=== PATIENT | female | born 1980 | race African-American/Black ===

== ENCOUNTER 2019-08-08 17:19 | Emergency (ER) | payer SELFPAY ==
[~2019-08-08] VITALS: Ht 170.2 cm; Wt 90.7 kg
[2019-08-08 17:45] VITALS: BP 106/66
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
[2019-08-08] MEDS ORDERED: ROBAXIN-500MG ORAL (20:42)
[2019-08-08] MEDS ORDERED: IBU800 MG PO (20:42)
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
--- NOTE | 2019-08-08 20:50 | NUR ---
ER DISCHARGE NOTE: Patient is cleared to be discharged per ERMD, pt is aox4, on room air, with stable vital signs. pt was given dc and prescription instructions, pt was able to verbalize understanding, pt id band and iv site removed without complications. pt is able to ambulate with steady gait. pt took all belongings.
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
== END 2019-08-08 20:50 | disposition home or self-care (01) ==
LOC: EMR 18:56
DX: S00.93XA Contusion of unspecified part of head, initial encounter (principal); S13.4XXA Sprain of ligaments of cervical spine, initial encounter; S33.5XXA Sprain of ligaments of lumbar spine, initial encounter; S63.602A Unspecified sprain of left thumb, initial encounter; E11.40 Type 2 diabetes mellitus with diabetic neuropathy, unspecified; M46.1 Sacroiliitis, not elsewhere classified; R07.9 Chest pain, unspecified; I10 Essential (primary) hypertension; V43.52XA Car driver injured in collision with other type car in traffic accident, initial encounter; Y92.410 Unspecified street and highway as the place of occurrence of the external cause
CPT/HCPCS: 70450; 71250; 72125; 74176; 99284